=== PATIENT | female | born 1995 | race African-American/Black ===

== ENCOUNTER 2018-10-19 09:23 | Emergency (ER) | payer BC, MEDICAID ==
[~2018-10-19] VITALS: Ht 167.6 cm; Wt 86.3 kg
[2018-10-19 10:06] VITALS: BP 122/67
[2018-10-19 11:06] LABS: CLARITY URINE CLEAR (CLEAR); COLOR URINE YELLOW (YELLOW); KETONES URINE NEGATIVE (NEGATIVE); LEUKOCYTE ESTERASE URINE NEGATIVE (NEGATIVE); NITRITE URINE NEGATIVE (NEGATIVE); OCCULT BLOOD URINE NEGATIVE (NEGATIVE); PROTEIN URINE NEGATIVE (NEGATIVE); SPECIFIC GRAVITY URINE 1.025 (1.005-1.030)
== END 2018-10-19 12:12 | disposition home or self-care (01) ==
LOC: ER 09:48
DX: J06.9 Acute upper respiratory infection, unspecified (principal); M94.0 Chondrocostal junction syndrome [Tietze]; F12.10 Cannabis abuse, uncomplicated; F17.200 Nicotine dependence, unspecified, uncomplicated
CPT/HCPCS: 71045; 81025; 99284